=== PATIENT | male | born 1955 | race African-American/Black ===

== ENCOUNTER 2019-09-21 20:52 | Emergency (ER) | payer MEDICAID ==
[~2019-09-21] VITALS: Ht 175.3 cm; Wt 109.0 kg
[2019-09-21] MEDS ORDERED: IBUPROFEN 600MG TABLET PO ONE (22:15)
[2019-09-21] MEDS ORDERED: HYDROCODONE/ACETAMINOPHEN 5/325MG TABLET PO ONE (23:15)
[2019-09-21 23:32] VITALS: BP 187/98
== END 2019-09-21 23:33 | disposition home or self-care (01) ==
LOC: ER 20:52
DX: S82.091A Other fracture of right patella, initial encounter for closed fracture (principal); V49.49XA Driver injured in collision with other motor vehicles in traffic accident, initial encounter; Y93.89 Activity, other specified; Y92.89 Other specified places as the place of occurrence of the external cause; Y99.8 Other external cause status; I10 Essential (primary) hypertension
CPT/HCPCS: 29505; 73560; 73620; 99283; L1830; Z7610